=== PATIENT | male | born 1985 ===

== ENCOUNTER 2023-02-17 18:50 | Emergency (ER) | payer OTHER, SELFPAY ==
--- NOTE | ~2023-02-17 | XR_ITS ---
EXAMINATION: XR SHOULDER, RIGHT CLINICAL INFORMATION: Pain COMPARISON: None available. TECHNIQUE: AP external rotation, Grashey, scapular Y, and axillary views of the right shoulder. FINDINGS: There is transverse fracture surgical neck right humerus with lateral and inferior displacement of the head. No additional fracture seen mild soft tissue swelling seen. XR/XR shoulder RT min 2V IMPRESSION: Surgical neck fracture right humerus with lateral and inferior displacement of the humeral head. Mild soft tissue swelling.
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
[2023-02-17 19:20] VITALS: BMI 24.2
--- NOTE | 2023-02-17 19:25 | PC.NURSE ---
Pt sitting in a wheelchair, tearful. Refusing IV and IV medications. Pt reports I dont want any needles . Provider made aware.
[2023-02-17] MEDS: oxyCODONE HCl Immed Release 5 MG TABLET PO (19:38)
--- NOTE | 2023-02-17 19:39 | PC.NURSE ---
Pt medicated po as ordered. Denies vitals, blood work, and sling at this time. Pt reports not wanting to scan the head and is requesting treatment for the right shoulder only. MLP aware.
[2023-02-17] MEDS: traMADoL HCL 50 MG TABLET PO (20:14)
[2023-02-17] MEDS: LORazepam 1 MG TABLET PO (20:14)
[2023-02-17] MEDS: Cyclobenzaprine HCl 10 MG TABLET PO (22:02)
--- NOTE | 2023-02-17 22:29 | PC.NURSE ---
Pt aox4 reporting right shoulder pain, 02/21. Sling applied to right shoulder. Pt tolerated fair. Pt is leaving AMA. AMA documents reviewed and signed by pt. Continues to refuse vitals and further treatment at this time. Reports only wanting to receive PO meds and then leaving AMA. Medicated as ordered. Tolerated well. Pt discharged with family member.
== END 2023-02-17 22:32 | disposition left against medical advice (07) ==
PROVIDERS: Emergency Provider Internal Medicine
DX: S42.301A Unspecified fracture of shaft of humerus, right arm, initial encounter for closed fracture (principal); S06.9X9A Unspecified intracranial injury with loss of consciousness of unspecified duration, initial encounter; M25.511 Pain in right shoulder; R51.9 Headache, unspecified; V17.4XXA Pedal cycle driver injured in collision with fixed or stationary object in traffic accident, initial encounter; Y93.9 Activity, unspecified; Y92.9 Unspecified place or not applicable; Y99.9 Unspecified external cause status
CPT/HCPCS: 73030; 96374; 96375; 99283; 99284

== ENCOUNTER 2023-02-22 07:23 | Outpatient (REF) | payer OTHER, SELFPAY ==
--- NOTE | ~2023-02-22 | XR_ITS ---
EXAMINATION: XR SHOULDER, RIGHT CLINICAL INFORMATION: Right shoulder pain, fracture COMPARISON: 02/17/2023 TECHNIQUE: AP external rotation, Grashey, scapular Y, and axillary views of the right shoulder. FINDINGS: There is comminuted impacted fracture through the right humeral head and neck with transverse component and displaced fragment. There is posterior displacement of the fragment XR/XR shoulder RT min 2V IMPRESSION: Comminuted fracture of right proximal humerus
== END 2023-02-22 07:24 | disposition home or self-care (01) ==
LOC: HO.HOSX 07:23
PROVIDERS: Visit Provider Physician Assistant
DX: S42.201A Unspecified fracture of upper end of right humerus, initial encounter for closed fracture (principal)
CPT/HCPCS: 73030; 73200; 99202

== ENCOUNTER 2023-02-22 10:22 | Outpatient (AMB) | payer OTHER, SELFPAY ==
[2023-02-22 10:28] VITALS: BMI 24.2
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
== END 2023-02-22 15:38 | disposition home or self-care (01) ==
PROVIDERS: Visit Provider Physician Assistant
DX: S42.211A Unspecified displaced fracture of surgical neck of right humerus, initial encounter for closed fracture (principal)
CPT/HCPCS: 99204

== ENCOUNTER 2023-02-22 12:47 | Outpatient (REF) | payer OTHER, SELFPAY ==
--- NOTE | ~2023-02-22 | CT_ITS ---
EXAMINATION: CT SHOULDER WITHOUT CONTRAST, RIGHT CLINICAL INFORMATION: Fracture. COMPARISON: Same day radiographs. TECHNIQUE: A non-contrast CT of the right shoulder is performed with sagittal and coronal reformats. This CT examination was performed using dose optimization techniques as appropriate, variously including the following: *Automated exposure control *Adjustment of mA and/or kV according to patient size (this includes techniques or standardized protocols for targeted exams where dose is matched to indication/reason for exam; i.e. extremities or head) *Use of iterative reconstruction technique DLP: 177 mGy-cm FINDINGS: There is a comminuted humeral head fracture including a transverse fracture along the surgical neck, and displaced fragments of the humeral head with posterior displacement and overriding due to an impaction anteriorly. The dominant fragment of the humeral head posteriorly is rotated and displaced approximately 1.7 cm posteriorly. There is an associated fracture with medial displacement of the posterior inferior glenoid rim. This rim fracture measures 1.9 cm in length, and is medially displaced 0.4 cm. No fracture of the more distal humerus is demonstrated. There is subcutaneous edema at the anterolateral aspect of the mid upper arm. CT/CT shoulder RT wo IV con IMPRESSION: Comminuted humeral head fracture as detailed in the comments. Overriding and posterior displacement as well as a rim fracture of the posterior inferior glenoid.
== END 2023-02-22 12:48 | disposition home or self-care (01) ==
LOC: HO.CT 12:47
PROVIDERS: Visit Provider Physician Assistant
DX: S42.291D Other displaced fracture of upper end of right humerus, subsequent encounter for fracture with routine healing (principal)
CPT/HCPCS: 73200

== ENCOUNTER 2023-02-28 10:22 | Outpatient (REF) | payer OTHER, SELFPAY ==
--- NOTE | ~2023-02-28 | XR_ITS ---
EXAMINATION: XR SHOULDER, RIGHT CLINICAL INFORMATION: Pain. COMPARISON: CT shoulder dated 02/22/2023; radiographs, most recently 02/22/2023. TECHNIQUE: AP external rotation, Grashey, scapular Y, and axillary views of the right shoulder. FINDINGS: There is stable alignment of a comminuted, impacted fracture of the right humeral head and neck. Again, this shows a fracture line traversing the surgical neck and displaced fracture fragments of the head portion. A mildly displaced posteroinferior glenoid rim fracture is again seen. There is no significant interim callus formation. No dislocation is seen. There is no soft tissue calcification or foreign body. No left pneumothorax is seen. XR/XR shoulder RT min 2V IMPRESSION: There are stable alignment of comminuted, displaced and impacted fractures of the proximal right humerus. A rim fracture is redemonstrated of the posteroinferior glenoid. No significant interval callus formation is noted.
== END 2023-02-28 10:23 | disposition home or self-care (01) ==
LOC: HO.HOSX 10:22
PROVIDERS: Visit Provider Physician Assistant
DX: S42.201D Unspecified fracture of upper end of right humerus, subsequent encounter for fracture with routine healing (principal); M62.838 Other muscle spasm; M25.519 Pain in unspecified shoulder
CPT/HCPCS: 73030; 99212

== ENCOUNTER 2023-02-28 13:18 | Outpatient (AMB) | payer OTHER, SELFPAY ==
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
[2023-02-28 13:37] VITALS: BMI 24.2
== END 2023-02-28 14:47 | disposition home or self-care (01) ==
PROVIDERS: Visit Provider Physician Assistant
DX: S42.211A Unspecified displaced fracture of surgical neck of right humerus, initial encounter for closed fracture (principal); S42.201A Unspecified fracture of upper end of right humerus, initial encounter for closed fracture
CPT/HCPCS: 99214

== ENCOUNTER 2023-03-15 09:57 | Outpatient (AMB) | payer OTHER, SELFPAY ==
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
== END 2023-03-15 11:21 | disposition home or self-care (01) ==
PROVIDERS: Visit Provider Physician Assistant
DX: S42.201A Unspecified fracture of upper end of right humerus, initial encounter for closed fracture (principal)
CPT/HCPCS: 99213

== ENCOUNTER 2023-03-15 13:17 | Outpatient (REF) | payer OTHER, SELFPAY ==
--- NOTE | ~2023-03-15 | XR_ITS ---
EXAMINATION: XR SHOULDER, RIGHT CLINICAL INFORMATION: Pain. COMPARISON: Prior radiographs, most recently 02/28/2023; CT shoulder dated 02/22/2023. TECHNIQUE: AP neutral and transscapular views of the right shoulder are submitted. FINDINGS: Bony alignment and mineralization are normal. A displaced, comminuted fracture of the proximal right humerus is seen in stable alignment. Again, fracture fragments involve the surgical neck and posterior humeral head. There is no significant callus formation. No soft tissue calcification or foreign body is seen. There is no right pneumothorax. XR/XR shoulder RT min 2V IMPRESSION: There is stable alignment of a comminuted, displaced fracture of the proximal right humerus. No significant new callus formation is seen.
== END 2023-03-15 13:18 | disposition home or self-care (01) ==
LOC: HO.HOSX 13:17
PROVIDERS: Visit Provider Physician Assistant
DX: S42.201A Unspecified fracture of upper end of right humerus, initial encounter for closed fracture (principal)
CPT/HCPCS: 73030; 99212

== ENCOUNTER 2023-03-28 17:26 | Outpatient (REF) | payer OTHER, SELFPAY | END 2023-03-28 17:27 | disposition home or self-care (01) | LOC: HO.HOSX 17:26 | PROVIDERS: Visit Provider Physician Assistant | DX: Z13.89 Encounter for screening for other disorder (principal) ==

== ENCOUNTER 2023-05-10 10:24 | Outpatient (AMB) | payer OTHER, SELFPAY ==
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
[2023-05-10 10:30] VITALS: BMI 24.2
== END 2023-05-10 11:04 | disposition home or self-care (01) ==
PROVIDERS: PCP Internal Medicine; Visit Provider Physician Assistant
DX: S42.201A Unspecified fracture of upper end of right humerus, initial encounter for closed fracture (principal)
CPT/HCPCS: 99214

== ENCOUNTER 2023-05-10 15:14 | Outpatient (REF) | payer OTHER, SELFPAY ==
--- NOTE | ~2023-05-10 | XR_ITS ---
EXAMINATION: XR SHOULDER, RIGHT CLINICAL INFORMATION: Pain in specified shoulder. COMPARISON: 03/15/2023. TECHNIQUE: 4 views of the right shoulder. FINDINGS: Redemonstration of a displaced, comminuted fracture of the proximal right humerus, with fragments involving the surgical neck and posterior humeral head. Fracture lines are still visible. Alignment is similar. Redemonstration of a rim fracture of the posterior/inferior glenoid. XR/XR shoulder RT min 2V IMPRESSION: Stable alignment of comminuted, displaced, impacted fractures of the proximal right humerus.
== END 2023-05-10 15:15 | disposition home or self-care (01) ==
LOC: HO.HOSX 15:14
PROVIDERS: Visit Provider Physician Assistant
DX: S42.201D Unspecified fracture of upper end of right humerus, subsequent encounter for fracture with routine healing (principal); M25.511 Pain in right shoulder; X58.XXXD Exposure to other specified factors, subsequent encounter
CPT/HCPCS: 73030; 99212

== ENCOUNTER 2023-07-12 08:00 | Outpatient (RCR) | payer OTHER, SELFPAY ==
--- NOTE | 2023-05-03 14:24 | MHC.PT.EP ---
[facility] [place] [facility] [place] [facility] [place] [facility] [address] Aubrey Mcconnell [address] [phone] F: [phone] F: [phone] F: [phone] F: [phone] Physical Therapy Plan of Care Date of Evaluation: 05/03/23 Date of Surgery: N/A Diagnosis: R humeral fracture (RL) Assessment: pt is a 37 y/o male presenting to physical therapy w/ referring diagnosis of S42.201A unspecified fracture of upper end of right humerus, initial encounter for closed fracture with special instructions for gentle ROM -periscap stabilization. pt's imaging is (+) for complex, comminuted and displaced humeral fx. He has not had an ortho follow-up in over a month. He has not been compliant w/ sling recommendations or prompt referral to PT. He is not following post-fracture precautions. I anticipate given the severity of his fracture and difficulty following recommendations/instructions from providers he will have a poor outcome. Impairments include pain, decreased range of motion, decreased strength, impaired functional mobility, impaired postural awareness. pt is a poor candidate for skilled PT due to age, potential remediation of impairments, typical disease/condition progression and prognosis, comorbidities, and motivation. pt would benefit from skilled PT intervention to provide a tailored strengthening and stretching exercise program, functional training, postural re-training, neuromuscular re-education, modalities as needed for pain, equipment safety demonstration. Frequency and Duration: The patient will be seen 2x/wk for 4 wks Short Term Goals: pt will be I w/ HEP to promote self-management of condition. pt will improve flexion AROM by at least 15 degrees to promote ease in upper body dressing. Fruit Packer Face And Fill Goals: pt will report a statistically significant improvement in self-reported outcome measure, SPADI, to promote return to PLOF. pt will acquire at least 4/5 R shoulder strength in flexion and abduction to promote ease in lifting. Treatment Plan: Modalities to reduce pain, spasms and effusion. Manual therapy to restore motion and function. Therapeutic exercise to improve strength and flexibility. Neuromuscular re-education for posture and balance. Therapeutic activities to return to functional activities of daily living. Electronically signed by: Dorothea Shah PT, DPT Please sign and return to therapist. Thank you for your referral.
== END 2023-07-12 10:46 | disposition home or self-care (01) ==
LOC: HO.PT 08:00
PROVIDERS: PCP Internal Medicine; Visit Provider Physician Assistant
DX: S42.201D Unspecified fracture of upper end of right humerus, subsequent encounter for fracture with routine healing (principal)
CPT/HCPCS: 97110; 97161; 97530

== ENCOUNTER 2023-07-19 11:41 | Outpatient (REF) | payer OTHER, SELFPAY ==
--- NOTE | ~2023-07-19 | XR_ITS ---
EXAMINATION: XR SHOULDER, RIGHT XR PA CHEST CLINICAL INFORMATION: Unspecified fracture of upper end of right humerus, initial encounter, pain in unspecified shoulder. COMPARISON: Right shoulder of 05/10/2023, 03/15/[address] right shoulder of 02/22/2023. TECHNIQUE: PA view of the chest. 3 views of the right shoulder. FINDINGS: Redemonstration of a displaced, comminuted fracture of the proximal right humerus with fragments involving the surgical neck and posterior humeral head. Fracture lines are still visible. Humeral head articulates with the glenoid. Rim fracture of the posterior inferior glenoid was better characterized on prior exams. PA Chest: There is no gross pneumothorax. Heart size is normal. No gross pleural effusion. XR/XR chest 1V IMPRESSION: Redemonstration of a displaced, comminuted fracture of the proximal right humerus with fragments involving the surgical neck and posterior humeral head.
--- NOTE | ~2023-07-19 | XR_ITS ---
EXAMINATION: XR SHOULDER, RIGHT XR PA CHEST CLINICAL INFORMATION: Unspecified fracture of upper end of right humerus, initial encounter, pain in unspecified shoulder. COMPARISON: Right shoulder of 05/10/2023, 03/15/[address] right shoulder of 02/22/2023. TECHNIQUE: PA view of the chest. 3 views of the right shoulder. FINDINGS: Redemonstration of a displaced, comminuted fracture of the proximal right humerus with fragments involving the surgical neck and posterior humeral head. Fracture lines are still visible. Humeral head articulates with the glenoid. Rim fracture of the posterior inferior glenoid was better characterized on prior exams. PA Chest: There is no gross pneumothorax. Heart size is normal. No gross pleural effusion. XR/XR shoulder RT min 2V IMPRESSION: Redemonstration of a displaced, comminuted fracture of the proximal right humerus with fragments involving the surgical neck and posterior humeral head.
== END 2023-07-19 11:42 | disposition home or self-care (01) ==
LOC: HO.HOSX 11:41
PROVIDERS: PCP Internal Medicine; Visit Provider Orthopaedic Surgery
DX: S42.201D Unspecified fracture of upper end of right humerus, subsequent encounter for fracture with routine healing (principal); M25.511 Pain in right shoulder; X58.XXXD Exposure to other specified factors, subsequent encounter
CPT/HCPCS: 71045; 73030; 99212

== ENCOUNTER 2023-07-19 11:41 | Outpatient (AMB) | payer OTHER, SELFPAY ==
--- NOTE | 2023-07-19 11:51 | MHC.OFFVIS ---
Intake Intake Visit Reasons: OV-Right Prox Humerus Fx 02/17/23 Intake Note: Gautam is a 37 year old right hand dominant male who presents today for a follow up of his right proximal humerus fracture DOI: 02/17/2023. Patient reports that he is doing well with some mild discomfort and stiffness. He is working with physical therapy but would like to change locations as he feels that currently he is not getting what he needs from it, he does note that his is not doing ohome exercises. Takes ibuprofen for his pain occasionally which is helpful. Allergies No Known Allergies Allergy (Verified 07/19/23 11:58) HPI OV-Right Prox Humerus Fx 02/17/23 HPI Details Gautam is a 37 year old man who presents ~5 months S/p right proximal humerus fracture. He says he is doing better than before, but continues to have mild pain & stiffness. His recovery was complicated by poor compliance with PT attendance. He has been attending PT since his last appointment, but would like a new order to go to a different location as he does not feel his current PT is particularly helpful. He denies doing any at-home exercises. [facility] Social History Current occupational status: unemployed Current occupation: rt hand / Review of Systems Const All systems reviewed & are unremarkable except as noted in HPI and below Physical Exam Const General: no acute distress, alert and awake Orientation/consciousness: patient oriented x3 HEENT Head: Yes normocephalic and Yes atraumatic Eyes EOM: EOMs intact bilaterally Resp Effort & Inspection: normal respiratory effort and able to speak in complete sentences Cardio Jugular venous distension: no JVD Skin General skin exam: turgor normal Rashes: no rashes Neuro General: patient oriented x3 Extrem Other: 25 deg ER and 75 deg isolated abd. 110 FF and IR to hip pocket 4/5 EC TTP distal scapular border medially and laterally Psych Appearance: grossly normal Affect: normal affect Attitude: cooperative Results Reviewed Results Reviewed: I personally reviewed relevant radiographs. There is a healing 4 part proximal humerus fracture iwth mild posterior subluxation of the head relative to the shaft. Assessment & Plan Assessment & Plan (1) Fracture of proximal end of right humerus: Code(s): S42.201A - Unspecified fracture of upper end of right humerus, initial encounter for closed fracture Plan: 4 part proximal humerus treated non operatively. He is healing well and has better than anticipated motion. He is not happy with PT and PT have reported poor attendance and limited improvement. I explained to him the relationship of the scapula to the shoulder and recommend ROM and strengthening of the deep stabilizers of the shoulder and working on improving his mechanics. Plan Scribed for Jhony Joel MD by Joe Martin, diploma medical assistant, on 07/19/23 at 12:05 PM, EST. Orders: Orders XR shoulder RT min 2V 07/19/23 M25.519 - Pain in unspecified shoulder PT Evaluation and Treatment Today S42.201A - Unspecified fracture of upper end of right humerus, initial encounter for closed fracture XR chest 1V 07/19/23 S42.201A - Unspecified fracture of upper end of right humerus, initial encounter for closed fracture Coding Level of Care Code Est Pt Level 3 (76758) Diagnoses Fracture of proximal end of right humerus S42.201A
== END 2023-07-19 13:41 | disposition home or self-care (01) ==
PROVIDERS: PCP Internal Medicine; Visit Provider Orthopaedic Surgery
DX: S42.201D Unspecified fracture of upper end of right humerus, subsequent encounter for fracture with routine healing (principal)
CPT/HCPCS: 99213

== ENCOUNTER 2024-01-27 10:35 | Outpatient (REF) | payer OTHER, SELFPAY | END 2024-01-27 10:36 | disposition home or self-care (01) | LOC: HO.HOSX 10:35 | PROVIDERS: Visit Provider Physician Assistant | DX: Z13.89 Encounter for screening for other disorder (principal) ==

== ENCOUNTER 2024-01-28 13:03 | Outpatient (AMB) | payer OTHER, SELFPAY ==
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
== END 2024-01-28 15:45 | disposition home or self-care (01) ==
PROVIDERS: PCP Internal Medicine; Visit Provider Physician Assistant
DX: S42.201A Unspecified fracture of upper end of right humerus, initial encounter for closed fracture (principal)
CPT/HCPCS: 99213

== ENCOUNTER 2024-01-28 13:03 | Outpatient (REF) | payer OTHER, SELFPAY ==
--- NOTE | ~2024-01-28 | XR_ITS ---
EXAMINATION: XR SHOULDER, RIGHT CLINICAL INFORMATION: Shoulder pain. COMPARISON: Prior radiographs latest 07/19/2023. CT 02/22/2023. TECHNIQUE: 3 views of the right shoulder. FINDINGS: Redemonstrated is a comminuted, displaced fracture of the proximal right humerus involving the humeral head and neck. Stable position and alignment. The fracture planes are ill defined. There is posterior subluxation of the humeral head with respect to the glenoid. Similar findings seen on the prior CT. Posterior glenoid is better on the prior CT scan. XR/XR shoulder RT min 2V IMPRESSION: Stable position and alignment of the comminuted, displaced proximal humeral head and neck fracture. Study is assigned for dictation on February 21, 2024.
== END 2024-01-28 13:04 | disposition home or self-care (01) ==
LOC: HO.HOSX 13:03
PROVIDERS: PCP Internal Medicine; Visit Provider Physician Assistant
DX: S42.201A Unspecified fracture of upper end of right humerus, initial encounter for closed fracture (principal)
CPT/HCPCS: 73030; 99212